=== PATIENT | female | born 1955 | race Asian ===

== ENCOUNTER 2017-09-24 09:10 | Day surgery (SDC) | payer OTHER ==
[~2017-09-24] VITALS: Ht 160 cm; Wt 63.3 kg
[2017-09-24 10:21] VITALS: BP 144/69; PULSE 62; RESP 18; Ht 160 cm; Wt 63.3 kg
[2017-09-24] MEDS ORDERED: GEMF600T60 PO (11:00)
[2017-09-24] MEDS ORDERED: HYDR25TA6 PO (11:00)
[2017-09-24] MEDS ORDERED: LOSA1TAB21 PO (11:00)
[2017-09-24] MEDS ORDERED: METF500T4 PO (11:00)
--- NOTE | 2017-09-24 11:18 | OPPN ---
Date/Time of Note Date/Time of Note DATE: 09/24/17 TIME: 11:17 Operative Report Preoperative Diagnosis Screening Postoperative Diagnosis Small sigmoid colon polyp was removed Internal hemorrhoids Operation/Procedure Performed Colonoscopy and biopsy Surgeon see signature line physicians assistant None Anesthesia: moderate sedation Estimated blood loss: none Transfusion Required none Specimen Sigmoid polyp biopsy Grafts/Implants none Complications none LEONIDAS OWEN MD Sep 24, 2017 11:18
[2017-09-24] MEDS ORDERED: MIDAZOLAM 1 MG/ML 2 ML INJ ONE (11:26)
[2017-09-24] MEDS ORDERED: FENTAnyl 50 MCG/ML VIAL ONE (11:26)
--- NOTE | 2017-09-24 12:53 | GILP ---
DATE OF PROCEDURE: NAME OF PROCEDURES: Colonoscopy and biopsy. SURGEON: Leonidas Pa MD PREOPERATIVE DIAGNOSIS: Screening colonoscopy. POSTOPERATIVE DIAGNOSES 1. Colonoscopy all the way to the cecum. 2. Small sigmoid colon polyp was removed. 3. Internal hemorrhoids. INDICATION FOR THE PROCEDURE: Ms. Gifty Menon is a 62-year-old female patient who was scheduled for s creening colonoscopy. The procedure and possible complications are well explained to the patient. The patient understood and consented to the procedure. DESCRIPTION OF PROCEDURE: Under the influence of fentanyl and Versed, the colonoscope was carefully introduced in the rectum and under direct vision it was advanced all the way to the cecum. FINDINGS: The patient had a small sigmoid colon polyp and it was removed using biopsy forceps. She was noted to have internal hemorrhoids. She tolerated the procedure very well and there was no complication from the procedure. At the end of the procedure, she was awake with stable vital signs and she was discharged home to the care of h er family. IMPRESSION: 1. Colonoscopy all the way to the cecum. 2. Small sigmoid colon polyp was removed using biopsy forceps. 3. Internal hemorrhoids. PLAN: Next screening colonoscopy in 10 years. Dictated By: LEONIDAS OWEN/FRANK Conf#: [id number] DID#: [id number]
== END 2017-09-24 17:22 | disposition home or self-care (01) ==
LOC: GIL 09:10
PROVIDERS: ATTEND Internal Medicine Gastroenterology
DX: Z12.11 Encounter for screening for malignant neoplasm of colon (principal); D12.6 Benign neoplasm of colon, unspecified; K64.8 Other hemorrhoids; E11.9 Type 2 diabetes mellitus without complications
CPT/HCPCS: 45380; 82962; 88305; J2250; J3010; Z7610